=== PATIENT | male | born 1965 | race Caucasian/White ===

== ENCOUNTER 2020-11-11 09:31 | Outpatient (CLI) | payer OTHER, SELFPAY ==
--- NOTE | ~2020-11-11 | XR_ITS ---
XR abdomen/kub 1V DATE: 11/11/2020 09:48 INDICATION: Calcium kidney stone TECHNIQUE: Single AP view of abdomen COMPARISON: None FINDINGS: Bilateral calcified pelvic phleboliths. No definite urinary tract calcification is noted. H owever, overlying bowel content may obscure subtle new microcalcifications. Also, there is a very sma ll faint calcification overlying the approximate area of the left ureterovesical junction. Noncontras t CT abdomen pelvis examination would be more sensitive for detection of urinary tract stones. No evidence of bowel obstruction. The psoas shadows are intact. No visceromegaly is evident. IMPRESSION: Consider noncontrast CT abdomen pelvis examination for more definitive evaluation for any urinary tract stones. Nonspecific abdomen Reviewed, dictated and finalized at [facility]. Reviewed, dictated and finalized at [facility]. IMPRESSION: Consider noncontrast CT abdomen pelvis examination for more definit mikel evaluation for any urinary tract stones. Nonspecific abdomen
== END 2020-11-11 09:32 | disposition home or self-care (01) ==
LOC: ANHIMG 09:35
PROVIDERS: Visit Provider Urology
DX: N20.0 Calculus of kidney (principal)
CPT/HCPCS: 74018